=== PATIENT | female | born 1955 | race Caucasian/White ===

== ENCOUNTER 2017-11-02 16:02 | Emergency (ER) | payer MEDICARE ==
[2017-11-02 19:21] LABS: BASOPHILS 0.3 % (0-2); EOSINOPHILS 1.9 % (0-7); HEMATOCRIT 33.1 % (36.0-48.0); HEMOGLOBIN 10.6 g/dL (12-16); IMMATURE GRANULOCYTES 0.4 % (0-5); MCH 23.2 pg (26.0-34.0); MCV 72.4 fL (80.0-100.0); MEAN PLATELET VOLUME 8.9 fL (7.4-10.4); MONOCYTES 14.4 % (2-11); PLATELET COUNT 180 10x3/uL (130-400); RBC 4.57 10x6/uL (4.00-5.40); RDW 15.2 % (11.5-14.5); WBC 6.7 10x3/uL (4.8-10.8)
[2017-11-02 19:34] LABS: ALKALINE PHOSPHATASE 87 U/L (46-116); ALT (SGPT) 18 U/L (10-68); BILIRUBIN - TOTAL 0.24 mg/dL (0.2-1.3); CALC OSMOLALITY 285 mosm/kg (275-300); CALCIUM 8.8 mg/dL (8.5-10.1); CARBON DIOXIDE 31.2 mmol/L (21.0-32.0); CHLORIDE - SERUM 99 mmol/L (98-107); CREATININE - SERUM 0.7 mg/dL (0.6-1.3); GLUCOSE 301 mg/dL (74-106); POTASSIUM - SERUM 3.4 mmol/L (3.5-5.1); PROTEIN - SERUM 7.8 g/dL (6.4-8.2); SODIUM 137 mmol/L (136-145); UREA NITROGEN 15 mg/dL (7-18); eGFR NON AFRICAN AMERICAN 90 mL/min (90-120)
[2017-11-02 20:24] LABS: APPEARANCE CLOUDY (CLEAR); COLOR YELLOW (YELLOW)
[2017-11-02 20:25] LABS: BILIRUBIN NEGATIVE (NEGATIVE); GLUCOSE 1000 mg/dL (NEGATIVE); KETONE NEGATIVE (NEGATIVE); NITRITE POSITIVE (NEGATIVE); PROTEIN NEGATIVE (NEGATIVE); UROBILINOGEN NORMAL (NORMAL)
[2017-11-02 20:26] LABS: WHITE CELLS - URINE 0-5 /hpf (0-5)
[2017-11-02 20:27] LABS: BACTERIA MANY /hpf (NONE SEEN); EPITHELIAL CELLS 0-5 /hpf (0-5); RED CELLS - URINE 0-5 /hpf (0-5); YEAST OCC /hpf (NONE SEEN)
[2017-11-15 16:00] VITALS: BMI 38.6
== END 2017-11-02 21:40 | disposition home or self-care (01) ==
LOC: D.ER 16:02
PROVIDERS: Physician Assistant Medical
DX: M24.10 Other articular cartilage disorders, unspecified site (principal); M19.90 Unspecified osteoarthritis, unspecified site; N39.0 Urinary tract infection, site not specified

== ENCOUNTER 2017-11-14 15:20 | Inpatient (IN) | payer MEDICARE ==
[~2017-11-14] VITALS: Ht 147.3 cm; Wt 83.9 kg
[2017-11-14 16:35] LABS: BASOPHILS 0.1 % (0-2); EOSINOPHILS 1.7 % (0-7); HEMATOCRIT 34.6 % (36.0-48.0); HEMOGLOBIN 10.9 g/dL (12-16); IMMATURE GRANULOCYTES 0.5 % (0-5); LYMPHOCYTES 39.3 % (15-50); MCH 22.8 pg (26.0-34.0); MCHC 31.5 g/dL (31.0-37.0); MCV 72.4 fL (80.0-100.0); MEAN PLATELET VOLUME 8.9 fL (7.4-10.4); MONOCYTES 15.7 % (2-11); NEUTROPHILS 42.7 % (40-80); PLATELET COUNT 202 10x3/uL (130-400); RBC 4.78 10x6/uL (4.00-5.40); RDW 15.6 % (11.5-14.5); WBC 7.5 10x3/uL (4.8-10.8)
[2017-11-14 16:58] LABS: ALBUMIN 3.1 g/dL (3.4-5.0); ALKALINE PHOSPHATASE 101 U/L (46-116); ALT (SGPT) 21 U/L (10-68); BILIRUBIN - TOTAL 0.28 mg/dL (0.2-1.3); CALC OSMOLALITY 285 mosm/kg (275-300); CALCIUM 8.7 mg/dL (8.5-10.1); CARBON DIOXIDE 28.9 mmol/L (21.0-32.0); CHLORIDE - SERUM 99 mmol/L (98-107); CREATININE - SERUM 0.8 mg/dL (0.6-1.3); GLUCOSE 301 mg/dL (74-106); POTASSIUM - SERUM 3.7 mmol/L (3.5-5.1); PROTEIN - SERUM 8.2 g/dL (6.4-8.2); SODIUM 137 mmol/L (136-145); UREA NITROGEN 14 mg/dL (7-18); eGFR NON AFRICAN AMERICAN 77 mL/min (90-120)
[2017-11-14 17:45] LABS: APPEARANCE CLEAR (CLEAR); BACTERIA FEW /hpf (NONE SEEN); BILIRUBIN NEGATIVE (NEGATIVE); COLOR YELLOW (YELLOW); EPITHELIAL CELLS RARE /hpf (0-5); GLUCOSE 1000 mg/dL (NEGATIVE); KETONE NEGATIVE (NEGATIVE); NITRITE POSITIVE (NEGATIVE); PROTEIN NEGATIVE (NEGATIVE); RED CELLS - URINE 0-5 /hpf (0-5); UROBILINOGEN NORMAL (NORMAL); WHITE CELLS - URINE 0-5 /hpf (0-5)
[2017-11-14 18:10] LABS: MAGNESIUM - SERUM 1.5 mg/dL (1.8-2.4)
[2017-11-14 18:41] LABS: KETONE - SERUM NEGATIVE (NEGATIVE)
[2017-11-14] MEDS ORDERED: RISPERDAL1 MG PO ×2 (20:19→21:13)
[2017-11-14] MEDS ORDERED: HYDROCODON-ACE1 EAC7 PO (20:25)
[2017-11-14] MEDS ORDERED: ACETAMINOPHEN325 MG PO (20:27)
[2017-11-14] MEDS ORDERED: POTASSIUM CHLO20 MEQ PO (20:29)
[2017-11-14] MEDS ORDERED: FUROSEMIDE20 MG PO (20:30)
[2017-11-14] MEDS ORDERED: TRAZODONE HCL50 MG PO (20:31)
[2017-11-14] MEDS ORDERED: LOPRESSOR25 MG PO (20:32)
[2017-11-14] MEDS ORDERED: GLUCOPHAGE XR750 MG PO (20:33)
[2017-11-14] MEDS ORDERED: MELATONIN 3 MG1 TAB PO (20:34)
[2017-11-14] MEDS ORDERED: NOVOLIN N100 U/ML (20:35)
[2017-11-14] MEDS ORDERED: VITAMIN B-12500 MC1 PO (20:36)
[2017-11-14] MEDS ORDERED: VITAMIN D2000 UNIT PO (20:36)
[2017-11-14] MEDS ORDERED: LANTUS SOL100 UNIT/1 SC (20:39)
[2017-11-14] MEDS ORDERED: MULTIPLE VITAMI1 TA1 PO (20:39)
[2017-11-14] MEDS ORDERED: DEPAKENE250 MG PO (20:40)
[2017-11-14 20:41] VITALS: BP 187/66
[2017-11-14] MEDS ORDERED: COZAAR50 MG PO (20:41)
[2017-11-14] MEDS ORDERED: CARDIZEM30 MG PO ×2 (20:42→21:15)
[2017-11-14] MEDS ORDERED: COLACE100 MG PO (20:43)
[2017-11-14] MEDS ORDERED: DESERYL100 MG PO (20:45)
[2017-11-14] MEDS ORDERED: NOVOLIN R100 U/ML SQ (20:50)
[2017-11-14 23:08] VITALS: BP 187/66; BMI 38.7
[2017-11-15 00:50] VITALS: BP 181/62
[2017-11-15 04:49] VITALS: BP 152/96
[2017-11-15 08:19] VITALS: BP 198/80
[2017-11-15 11:14] LABS: BASOPHILS 0.4 % (0-2); EOSINOPHILS 2.5 % (0-7); HEMATOCRIT 32.3 % (36.0-48.0); HEMOGLOBIN 10.3 g/dL (12-16); IMMATURE GRANULOCYTES 0.3 % (0-5); LYMPHOCYTES 35.4 % (15-50); MCH 22.7 pg (26.0-34.0); MCHC 31.9 g/dL (31.0-37.0); MCV 71.3 fL (80.0-100.0); MEAN PLATELET VOLUME 9.2 fL (7.4-10.4); MONOCYTES 14.8 % (2-11); NEUTROPHILS 46.6 % (40-80); PLATELET COUNT 196 10x3/uL (130-400); RBC 4.53 10x6/uL (4.00-5.40); RDW 15.6 % (11.5-14.5); WBC 7.3 10x3/uL (4.8-10.8)
[2017-11-15 11:35] LABS: ALBUMIN 2.9 g/dL (3.4-5.0); ALKALINE PHOSPHATASE 85 U/L (46-116); ALT (SGPT) 21 U/L (10-68); CALCIUM 8.8 mg/dL (8.5-10.1); CARBON DIOXIDE 30.2 mmol/L (21.0-32.0); CHLORIDE - SERUM 101 mmol/L (98-107); CREATININE - SERUM 0.6 mg/dL (0.6-1.3); POTASSIUM - SERUM 3.5 mmol/L (3.5-5.1); PROTEIN - SERUM 7.7 g/dL (6.4-8.2); SODIUM 137 mmol/L (136-145); eGFR NON AFRICAN AMERICAN > 90 mL/min (90-120)
[2017-11-15 11:38] LABS: CALC OSMOLALITY 278 mosm/kg (275-300); GLUCOSE 205 mg/dL (74-106); UREA NITROGEN 10 mg/dL (7-18)
[2017-11-15 13:21] VITALS: BP 180/78
[2017-11-15 13:54] VITALS: BMI 38.6
[2017-11-15 16:00] VITALS: Ht 147.3 cm; Wt 83.9 kg
[2017-11-15 16:32] VITALS: BP 197/92
[2017-11-15 20:00] VITALS: BP 143/64
[2017-11-16] VITALS: BP 133/62
[2017-11-16 04:00] VITALS: BP 148/45
[2017-11-16 05:31] LABS: BASOPHILS 0.3 % (0-2); EOSINOPHILS 2.8 % (0-7); HEMATOCRIT 33.2 % (36.0-48.0); HEMOGLOBIN 10.7 g/dL (12-16); IMMATURE GRANULOCYTES 0.6 % (0-5); LYMPHOCYTES 38.8 % (15-50); MCH 22.8 pg (26.0-34.0); MCHC 32.2 g/dL (31.0-37.0); MCV 70.8 fL (80.0-100.0); MEAN PLATELET VOLUME 9.1 fL (7.4-10.4); MONOCYTES 17.4 % (2-11); NEUTROPHILS 40.1 % (40-80); PLATELET COUNT 191 10x3/uL (130-400); RBC 4.69 10x6/uL (4.00-5.40); RDW 15.8 % (11.5-14.5); WBC 7.2 10x3/uL (4.8-10.8)
[2017-11-16 05:45] LABS: ALBUMIN 2.9 g/dL (3.4-5.0); ALKALINE PHOSPHATASE 90 U/L (46-116); ALT (SGPT) 19 U/L (10-68); BILIRUBIN - TOTAL 0.35 mg/dL (0.2-1.3); CALC OSMOLALITY 277 mosm/kg (275-300); CALCIUM 8.5 mg/dL (8.5-10.1); CARBON DIOXIDE 28.9 mmol/L (21.0-32.0); CHLORIDE - SERUM 101 mmol/L (98-107); CREATININE - SERUM 0.7 mg/dL (0.6-1.3); GLUCOSE 193 mg/dL (74-106); POTASSIUM - SERUM 3.5 mmol/L (3.5-5.1); PROTEIN - SERUM 7.9 g/dL (6.4-8.2); SODIUM 137 mmol/L (136-145); UREA NITROGEN 10 mg/dL (7-18); eGFR NON AFRICAN AMERICAN 90 mL/min (90-120)
[2017-11-16 08:11] VITALS: BP 183/69
[2017-11-16 12:31] VITALS: BP 195/88
[2017-11-16 16:09] VITALS: BP 184/86
[2017-11-16 20:00] VITALS: BP 174/77
[2017-11-17 04:00] VITALS: BP 161/73
[2017-11-17 05:31] LABS: BASOPHILS 0.5 % (0-2); EOSINOPHILS 2.6 % (0-7); HEMATOCRIT 34.2 % (36.0-48.0); HEMOGLOBIN 10.9 g/dL (12-16); IMMATURE GRANULOCYTES 0.6 % (0-5); LYMPHOCYTES 40.3 % (15-50); MCH 22.8 pg (26.0-34.0); MCHC 31.9 g/dL (31.0-37.0); MCV 71.4 fL (80.0-100.0); MEAN PLATELET VOLUME 8.8 fL (7.4-10.4); MONOCYTES 15.8 % (2-11); NEUTROPHILS 40.2 % (40-80); PLATELET COUNT 193 10x3/uL (130-400); RBC 4.79 10x6/uL (4.00-5.40); RDW 15.8 % (11.5-14.5)
[2017-11-17 06:00] LABS: ALBUMIN 3.1 g/dL (3.4-5.0); ALKALINE PHOSPHATASE 97 U/L (46-116); ALT (SGPT) 20 U/L (10-68); BILIRUBIN - TOTAL 0.36 mg/dL (0.2-1.3); CALC OSMOLALITY 279 mosm/kg (275-300); CALCIUM 8.7 mg/dL (8.5-10.1); CARBON DIOXIDE 30.2 mmol/L (21.0-32.0); CHLORIDE - SERUM 101 mmol/L (98-107); CREATININE - SERUM 0.6 mg/dL (0.6-1.3); GLUCOSE 174 mg/dL (74-106); POTASSIUM - SERUM 3.4 mmol/L (3.5-5.1); PROTEIN - SERUM 8.3 g/dL (6.4-8.2); SODIUM 138 mmol/L (136-145); UREA NITROGEN 12 mg/dL (7-18); eGFR NON AFRICAN AMERICAN > 90 mL/min (90-120)
[2017-11-17 08:07] VITALS: BP 162/98
[2017-11-17] MEDS ORDERED: OMNICEF300 MG PO (11:32)
[2017-11-17 11:39] VITALS: BP 156/74
[2017-11-17 19:48] VITALS: BP 159/107
[2017-11-18 04:04] VITALS: BP 179/74
[2017-11-18 04:17] VITALS: BP 164/58
[2017-11-18 06:36] LABS: BASOPHILS 0.2 % (0-2); EOSINOPHILS 3.3 % (0-7); HEMATOCRIT 34.2 % (36.0-48.0); IMMATURE GRANULOCYTES 0.5 % (0-5); LYMPHOCYTES 35.9 % (15-50); MCH 23.2 pg (26.0-34.0); MCHC 32.2 g/dL (31.0-37.0); MCV 72.2 fL (80.0-100.0); MEAN PLATELET VOLUME 9.6 fL (7.4-10.4); MONOCYTES 17.4 % (2-11); NEUTROPHILS 42.7 % (40-80); PLATELET COUNT 213 10x3/uL (130-400); RBC 4.74 10x6/uL (4.00-5.40); RDW 15.9 % (11.5-14.5); WBC 8.4 10x3/uL (4.8-10.8)
[2017-11-18 06:57] LABS: ALBUMIN 3.2 g/dL (3.4-5.0); ALKALINE PHOSPHATASE 99 U/L (46-116); ALT (SGPT) 21 U/L (10-68); CALC OSMOLALITY 283 mosm/kg (275-300); CALCIUM 9.3 mg/dL (8.5-10.1); CARBON DIOXIDE 29.7 mmol/L (21.0-32.0); CHLORIDE - SERUM 103 mmol/L (98-107); CREATININE - SERUM 0.7 mg/dL (0.6-1.3); GLUCOSE 170 mg/dL (74-106); POTASSIUM - SERUM 3.5 mmol/L (3.5-5.1); PROTEIN - SERUM 8.6 g/dL (6.4-8.2); SODIUM 140 mmol/L (136-145); UREA NITROGEN 14 mg/dL (7-18); eGFR NON AFRICAN AMERICAN 90 mL/min (90-120)
[2017-11-18 08:37] VITALS: BP 172/58
== END 2017-11-18 11:03 | DRG 690 ==
LOC: D.ER 15:20 → D.MS 18:12 → D.EDHOLD 18:12 → D.MS 18:22
PROVIDERS: Family Medicine; Physician Assistant Medical
DX: N39.0 Urinary tract infection, site not specified (principal); K63.2 Fistula of intestine; M25.511 Pain in right shoulder; W19.XXXA Unspecified fall, initial encounter; Y92.128 Other place in nursing home as the place of occurrence of the external cause; E11.65 Type 2 diabetes mellitus with hyperglycemia; Z79.4 Long term (current) use of insulin; I10 Essential (primary) hypertension; F20.9 Schizophrenia, unspecified; F03.90 Unspecified dementia, unspecified severity, without behavioral disturbance, psychotic disturbance, mood disturbance, and anxiety; G25.81 Restless legs syndrome; E66.9 Obesity, unspecified; Z68.38 Body mass index [BMI] 38.0-38.9, adult